=== PATIENT | female | born 1940 ===

== ENCOUNTER 2017-05-10 12:59 | Emergency (ER) | payer MEDICARE, OTHER ==
[2017-05-10 13:55] VITALS: TEMP 98.5; BMI 34.7
[2017-05-10 14:30] LABS: SQUAMOUS EPITHIAL 2 /hpf (0-5); URINE BACTERIA RARE (<OCC); URINE BILIRUBIN NEGATIVE (NEGATIVE); URINE BLOOD NEGATIVE (NEGATIVE); URINE CLARITY Hazy (Clear); URINE COLOR Straw (YELLOW); URINE GLUCOSE (UA) NORMAL (Normal); URINE NITRATE NEGATIVE (NEGATIVE); URINE PROTEIN NEGATIVE (NEGATIVE); URINE UROBILINOGEN NORMAL mg/dL (0.2-1.0)
[2017-05-10 14:33] LABS: URINE LEUKOCYTE ESTERASE NEGATIVE Leu/uL (Negative)
[2017-05-10 14:54] LABS: BASO % 0.2 % (0.0-2.0); EOS # 0.2 K/uL (0.0-0.7); EOS % 2.4 % (0.0-4.0); HEMOGLOBIN 10.3 g/dL (11.0-16.0); LYMPH # 1.8 K/uL (1.0-4.3); MEAN CELL VOLUME 82.5 fL (81.0-99.0); MEAN CORPUSCULAR HEMOGLOBIN 28.2 pg (27.0-31.0); MEAN CORPUSCULAR HGB CONC 34.3 g/dL (33.0-37.0); MEAN PLATELET VOLUME 9.3 fL (7.2-11.7); MONO # 0.8 K/uL (0.0-0.8); MONO % 10.5 % (0.0-10.0); NEUT # 4.6 K/uL (1.8-7.0); NEUT % 62.9 % (50.0-75.0); NRBC % 0.1 % (0.0-2.0); RBC 3.64 Mil/uL (3.80-5.20); RED CELL DISTRIBUTION WIDTH 14.1 % (11.5-14.5); WHITE BLOOD COUNT 7.4 K/uL (4.8-10.8)
--- NOTE | 2017-05-10 14:55 | C.PDOC ---
History Of Present Illness 77 yr old female referred to ER by her urologist today, presents to the ER for asymptomatic low blood pressure. Patient states she was at her urologist for a follow up when she was informed her sysolic pressure is in the low 90s. Patient reports she was recently increased on her isosorbide from 40 to 60 and losartan 80 daily. Patient is compliant with her medicine. Denies fever, chills, chest pain, SOB, nausea, vomiting, weakness, numbness or headache. Insulin Reg 6 TID with meals Lantus 22 U QHS Time Seen by Provider: 05/10/17 13:18 Chief Complaint (Nursing): Medical Clearance History Per: Patient History/Exam Limitations: no limitations Onset/Duration Of Symptoms: Sudden Onset ([employer]) Past Medical History Reviewed: Historical Data, Nursing Documentation, Vital Signs Vital Signs: Last Vital Signs Temp 98.5 F 05/10/17 16:13 Pulse 80 05/10/17 16:13 Resp 16 05/10/17 16:13 BP 100/61 05/10/17 16:13 Pulse Ox 100 05/10/17 16:13 - Medical History PMH: Anemia, HTN Family History: States: No Known Family Hx - Social History Hx Alcohol Use: No Hx Substance Use: No - Immunization History Hx Tetanus Toxoid Vaccination: No Hx Influenza Vaccination: No Hx Pneumococcal Vaccination: No Review Of Systems Except As Marked, All Systems Reviewed And Found Negative. Constitutional: Negative for: Fever, Chills Cardiovascular: Negative for: Chest Pain Respiratory: Negative for: Shortness of Breath Gastrointestinal: Negative for: Nausea, Vomiting Neurological: Negative for: Weakness, Numbness, Headache Physical Exam - Physical Exam Appears: Non-toxic, No Acute Distress Skin: Warm, Dry, No Rash Eye(s): bilateral: Normal Inspection, PERRL, EOMI Oral Mucosa: Moist Cardiovascular: Rhythm Regular, No Murmur Respiratory: Normal Breath Sounds, No Rales, No Rhonchi, No Stridor, No Wheezing Gastrointestinal/Abdominal: Normal Exam, Soft, No Tenderness, No Guarding, No Rebound Extremity: Normal ROM, No Swelling Neurological/Psych: Oriented x3, Normal Speech ED Course And Treatment - Laboratory Results Result Diagrams: 05/10/17 14:47 05/10/17 14:47 Lab Interpretation: Normal ECG: Interpreted By Me ECG Rhythm: Sinus Rhythm O2 Sat by Pulse Oximetry: 98 (RA) Pulse Ox Interpretation: Normal - Radiology CXR: Interpreted by Me, Viewed By Me CXR Interpretation: Yes: No Acute Disease Progress Note: no meds for BP given, insulin 6 SQ for lunch with tuna sandwich and juice Reevaluation Time: 15:49 Reassessment Condition: Improved (BP 120/80 hr 80's) - Physician Consult Information Outcome Of Conversation: 1530: d/w Molly Amaral PHYSICIAN SUPPORT COORDINATOR in [place]. she saw pt 2 days ago, and unaware pt on Isorbid XR 60 and Losartan 80 daily. She IS aware pt on Ramipril 1.25 mg daily. Overall there are questions about pt's daily medication regimen Medical Decision Making Medical Decision Making: PLAN: * CXR * EKG * Labs * Urinalysis suspect polypharmacy- pt on at least 3 BP meds and hypotensive though asymptomatic. ask to d/c Isorbid and losartan until f/u tomorrow with PHYSICIAN SUPPORT COORDINATOR in [place] to review all meds Disposition Doctor Will See Patient In The: Office Counseled Patient/Family Regarding: Studies Performed, Diagnosis - Disposition Referrals: [facility] [Outside] [facility] [Outside] Disposition: HOME/ ROUTINE Disposition Time: 15:54 Condition: GOOD Additional Instructions: sigue con Molly Amaral PHYSICIAN SUPPORT COORDINATOR en [place] para revisar miles medicamentos - estas tomando demasiados medicamentos para la pression amie. JOHANNA de deny el Isorbid XR 60mg en la [place] que habla con Molly Amaral- [place] para hacer liliya [place] evaluacion' hoy salio normal. Instructions: Adverse Drug Reactions, Adult (DC) Forms: [employer] (Mongolian) Print Language: KAZAKH - Clinical Impression Clinical Impression: Medical assessment - Scribe Statement The provider has reviewed the documentation as recorded by the Scribe Fela Cruz Provider Attestation: All medical record entries made by the Scribe were at my direction and personally dictated by me. I have reviewed the chart and agree that the record accurately reflects my personal performance of the history, physical exam, medical decision making, and the department course for this patient. I have also personally directed, reviewed, and agree with the discharge instructions and disposition.
[2017-05-10 15:03] LABS: PROTHROMBIN TIME 11.2 SECONDS (9.7-12.2)
[2017-05-10 15:09] LABS: ALBUMIN 3.6 g/dL (3.5-5.0); ALT/SGPT 22 U/L (9-52); AST/SGOT 18 U/L (14-36); BLOOD UREA NITROGEN 34 mg/dL (7-17); CALCIUM 9.1 mg/dl (8.6-10.4); GFR AFRICAN-AMERICAN 48; GFR NON-AFRICAN AMERICAN 40
[2017-05-10 15:22] LABS: B-TYPE NATRIURETIC PEPTIDE 178 pg/mL (0-900)
[2017-05-10] MEDS ORDERED: (Novolin R) Insulin Human Regular 100 units/ml vial SC STA (15:46)
[2017-05-10 16:14] VITALS: BP 100/61; PULSE 80; RESP 16
[2017-05-10 16:46] VITALS: O2SAT 98
--- NOTE | 2017-05-10 16:46 | RAD ---
HISTORY: SOB COMPARISON: None available. TECHNIQUE: Chest, one view. FINDINGS: Examination limited by habitus and hypoinflation. LUNGS: No focal consolidation. Please note that chest x-ray has limited sensitivity for the detection of pulmonary masses. PLEURA: No significant pleural effusion identified. No definite pneumothorax . CARDIOVASCULAR: Borderline cardiomegaly. Atherosclerotic calcifications of the aorta. OSSEOUS STRUCTURES: Degenerative changes. VISUALIZED UPPER ABDOMEN: Unremarkable. OTHER FINDINGS: None. IMPRESSION: No focal consolidation identified.
== END 2017-05-10 17:13 | disposition home or self-care (01) ==
LOC: C.ER 12:59
DX: Z00.00 Encounter for general adult medical examination without abnormal findings (principal)